=== PATIENT | male | born 1975 | race African-American/Black ===

== ENCOUNTER 2020-02-29 20:45 | Emergency (ER) | payer MEDICAID ==
[~2020-02-29] VITALS: Ht 177.8 cm; Wt 82.0 kg
[2020-02-29] MEDS ORDERED: SODIUM CHLORIDE 0.9% 1,000 ML IV ONE (21:10)
[2020-02-29] MEDS ORDERED: ONDANSETRON HCL 4MG/2ML INJ IV STA (21:10)
[2020-02-29] MEDS ORDERED: LORAZEPAM 2MG/ML CPJ IV ONE (21:15)
[2020-02-29] MEDS ORDERED: LEVETIRACETAM 500MG PREMIX 100 ML IV ONE (21:15)
[2020-02-29 21:41] LABS: BASOPHILS % 0.4 % (0.0-2.0); EOSINOPHILS % 0.4 % (0.0-5.0); HEMATOCRIT. 35.5 % (42.0-52.0); HEMOGLOBIN. 12.3 g/dL (14.0-18.0); MEAN CORPUSCULAR HEMOGLOBIN 29.4 pg (28.0-32.0); MEAN PLATELET VOLUME 8.5 fl (7.4-10.4); MONOCYTES % 5.1 % (2.0-8.0); NEUTROPHILS % 50.1 % (40.0-76.0); PLATELET 300 x1000/uL (130-400); RED BLOOD CELL COUNT 4.18 mill/uL (4.7-6.1); RED CELL DISTRIBUTION WIDTH 14.4 % (11.6-14.6)
[2020-02-29 21:46] LABS: CHLORIDE 107 mEq/L (98-107)
[2020-03-01 00:09] VITALS: BP 111/65
== END 2020-03-01 00:11 | disposition home or self-care (01) ==
LOC: ER 20:45
DX: G40.909 Epilepsy, unspecified, not intractable, without status epilepticus (principal); I10 Essential (primary) hypertension; Z91.14 Patient's other noncompliance with medication regimen
CPT/HCPCS: 36415; 80053; 85025; 96365; 96375; 99284; J1953; J2060; J2405; J7030

== ENCOUNTER 2020-04-29 21:15 | Emergency (ER) | payer MEDICAID ==
[~2020-04-29] VITALS: Ht 180.3 cm; Wt 87.0 kg
[2020-04-29] MEDS ORDERED: SODIUM CHLORIDE 0.9% 1,000 ML IV ONE (21:57)
[2020-04-29] MEDS ORDERED: LEVETIRACETAM 1000MG/100ML 100 ML IV ONE (22:00)
[2020-04-29 23:45] VITALS: BP 97/74
== END 2020-04-30 00:03 | disposition left against medical advice (07) ==
LOC: ER 21:15
DX: R56.9 Unspecified convulsions (principal); R00.0 Tachycardia, unspecified; I10 Essential (primary) hypertension
CPT/HCPCS: 93005; 99283; J7030

== ENCOUNTER 2020-06-12 16:05 | Inpatient (IN) | payer MEDICAID ==
[~2020-06-12] VITALS: Ht 175.3 cm; Wt 78.9 kg
[2020-06-12] MEDS ORDERED: SODIUM CHLORIDE 0.9% 1,000 ML IV ONE ×2 (16:21→16:45)
[2020-06-12] MEDS ORDERED: LORAZEPAM 2MG/ML CPJ IV ONE ×2 (16:30→16:45)
[2020-06-12 16:49] LABS: BASOPHILS % 0.8 % (0.0-2.0); EOSINOPHILS % 1.7 % (0.0-5.0); HEMATOCRIT. 33.9 % (42.0-52.0); HEMOGLOBIN. 11.1 g/dL (14.0-18.0); LYMPHOCYTES % 68.9 % (20.0-50.0); MEAN CORPUSCULAR HEMOGLOBIN 28.4 pg (28.0-32.0); MEAN PLATELET VOLUME 9.2 fl (7.4-10.4); MONOCYTES % 3.2 % (2.0-8.0); NEUTROPHILS % 25.4 % (40.0-76.0); PLATELET 295 x1000/uL (130-400); RED BLOOD CELL COUNT 3.89 mill/uL (4.7-6.1); RED CELL DISTRIBUTION WIDTH 15.1 % (11.6-14.6)
[2020-06-12 16:54] LABS: CHLORIDE 105 mEq/L (98-107)
[2020-06-12 16:57] LABS: PROTHROMBIN TIME 10.3 sec (9.6-11.0)
[2020-06-12 16:58] LABS: ETHANOL BLOOD < 10 mg/dL
[2020-06-12 17:15] LABS: CREATINE KINASE 1350 IU/L (39-308)
[2020-06-12 18:49] LABS: CLARITY URINE CLOUDY (CLEAR); COLOR URINE YELLOW (YELLOW); KETONES URINE NEGATIVE (NEGATIVE); LEUKOCYTE ESTERASE URINE 1+ (NEGATIVE); NITRITE URINE NEGATIVE (NEGATIVE); OCCULT BLOOD URINE 3+ (NEGATIVE); PROTEIN URINE 2+ (NEGATIVE); SPECIFIC GRAVITY URINE 1.019 (1.005-1.030); UROBILINOGEN URINE 0.2 E.U./dL (0.2-1.0)
[2020-06-12 18:58] LABS: *AMPHETAMINES SCREEN URINE PRESUMTIVE POSITIVE (NEGATIVE); *BARBITURATES SCREEN URINE NEGATIVE (NEGATIVE); *BENZODIAZEPINES SCREEN URINE PRESUMTIVE POSITIVE (NEGATIVE); *COCAINE SCREEN URINE NEGATIVE (NEGATIVE)
[2020-06-12 18:59] LABS: CANNABINOID URINE SCREEN PRESUMTIVE POSITIVE (NEGATIVE); METHADONE URINE SCREEN NEGATIVE (NEGATIVE); OPIATES URINE SCREEN NEGATIVE (NEGATIVE); PHENCYCLIDINE URINE SCREEN NEGATIVE (NEGATIVE)
[2020-06-12] MEDS ORDERED: AZITHROMYCIN 500 MG in DEXT 5% WATER 250 ML IV SCH (19:45)
[2020-06-12] MEDS ORDERED: LACTULOSE 20G/30ML UDC PO ONE (19:45)
[2020-06-12] MEDS ORDERED: CEFTRIAXONE 1 G PREMIX 50 ML IV ONE (19:45)
[2020-06-12] MEDS ORDERED: DOCUSATE SODIUM 100MG CAPSULE PO PRN (21:45)
[2020-06-12] MEDS ORDERED: CLONIDINE 0.1MG TABLET PO PRN (21:45)
[2020-06-12] MEDS ORDERED: IPRATROPIUM/ALBUTEROL 0.5-3(2.5)MG/3ML NEB NEB PRN (21:45)
[2020-06-12] MEDS ORDERED: GUAIFENESIN 200MG/10ML SUGAR FREE UDC PO PRN (21:45)
[2020-06-12] MEDS ORDERED: ACETAMINOPHEN 325MG TABLET PO PRN (21:45)
[2020-06-12] MEDS ORDERED: LORAZEPAM 2MG/ML CPJ IV PRN (21:45)
[2020-06-12] MEDS ORDERED: ENOXAPARIN 40MG/0.4ML SYR SUBCUT SCH (21:45)
[2020-06-12] MEDS ORDERED: DIPHENHYDRAMINE 50MG/ML VIAL IV PRN (21:45)
[2020-06-12] MEDS ORDERED: ONDANSETRON HCL 4MG/2ML INJ IV PRN (21:45)
[2020-06-12] MEDS ORDERED: MORPHINE SULFATE 2 MG/ML CPJ (NOT FOR IM USE) IV PRN (21:45)
[2020-06-12] MEDS ORDERED: HYDROCODONE/ACETAMINOPHEN 5/325MG TABLET PO PRN (21:45)
[2020-06-12] MEDS ORDERED: MAGNESIUM/ALUMINUM HYDROXIDE/SIMETHICONE 30ML UDC PO PRN (21:45)
[2020-06-12] MEDS ORDERED: NA PHOS,M-B/NA PHOS,DI-BA ENEMA 118ML PR PRN (21:45)
[2020-06-12 22:20] VITALS: BP 106/79
[2020-06-12 22:25] VITALS: BP 106/79
[2020-06-12] MEDS: SODIUM CHLORIDE 0.45% 1,000 ML IV SCH (22:56)
[2020-06-12] MEDS ORDERED: GABA-531 PO (23:13)
[2020-06-12] MEDS ORDERED: LEVE750T10 PO (23:13)
[2020-06-13] VITALS: BP 113/59
[2020-06-13 04:00] VITALS: BP 121/76
[2020-06-13 08:00] VITALS: BP 114/80
[2020-06-13 08:03] LABS: BASOPHILS % 0.4 % (0.0-2.0); EOSINOPHILS % 1.5 % (0.0-5.0); HEMATOCRIT. 31.5 % (42.0-52.0); HEMOGLOBIN. 10.5 g/dL (14.0-18.0); LYMPHOCYTES % 36.4 % (20.0-50.0); MEAN CORPUSCULAR HEMOGLOBIN 28.4 pg (28.0-32.0); MEAN CORPUSCULAR VOLUME 85.2 fL (80.0-94.0); MONOCYTES % 6.4 % (2.0-8.0); NEUTROPHILS % 55.3 % (40.0-76.0); PLATELET 247 x1000/uL (130-400); RED CELL DISTRIBUTION WIDTH 14.9 % (11.6-14.6)
[2020-06-13 08:10] LABS: CHLORIDE 109 mEq/L (98-107)
[2020-06-13 08:17] LABS: LDL CHOLESTEROL 66 mg/dL (5-100)
[2020-06-13 08:18] LABS: HDL CHOLESTEROL 53 mg/dL (40-59); T4 FREE 0.97 ng/dL (0.76-1.46)
[2020-06-13] MEDS ORDERED: ASPIRIN 81MG EC TABLET PO SCH (09:00)
[2020-06-13] MEDS: SODIUM CHLORIDE 0.45% 1,000 ML IV SCH (09:15)
[2020-06-13 11:45] VITALS: BP 141/79
== END 2020-06-13 12:30 | disposition home or self-care (01) | DRG 812 ==
LOC: ER 16:05 → 5WST 19:16 → ENRESERV 20:01
PROVIDERS: ADMIT Internal Medicine; ATTEND Internal Medicine
DX: T43.621A Poisoning by amphetamines, accidental (unintentional), initial encounter (principal); G92 Toxic encephalopathy; E86.0 Dehydration; N17.9 Acute kidney failure, unspecified; F15.90 Other stimulant use, unspecified, uncomplicated; F20.9 Schizophrenia, unspecified; I10 Essential (primary) hypertension; Y92.89 Other specified places as the place of occurrence of the external cause; E87.2 Acidosis
CPT/HCPCS: 36415; 71045; 80053; 80061; 80305; 80307; 80320; 80329; 81003; 82140; 82550; 83605; 84439; 84443; 84484; 85025; 86850; 86900; 93005; 96365; 99291; J0456; J0696; J1650; J2060; J7030; J7060; G0480

== ENCOUNTER 2020-07-02 03:44 | Emergency (ER) | payer MEDICAID ==
[~2020-07-02] VITALS: Ht 175.3 cm; Wt 81.0 kg
[~2020-07-02 03:44] MED LIST: GABA-531 PO; LEVE750T10 PO
[2020-07-02] MEDS ORDERED: TETANUS, DIPHTHERIA, PERTUSSIS VAC/PF 0.5ML (>7YR OLD) IM ONE (04:00)
[2020-07-02] MEDS ORDERED: SODIUM CHLORIDE 0.9% 1,000 ML IV ONE (04:00)
[2020-07-02] MEDS ORDERED: LEVETIRACETAM 1000MG/100ML 100 ML IV ONE (04:15)
[2020-07-02 04:30] LABS: BASOPHILS % 0.3 % (0.0-2.0); EOSINOPHILS % 0.6 % (0.0-5.0); HEMATOCRIT. 33.3 % (42.0-52.0); HEMOGLOBIN. 11.2 g/dL (14.0-18.0); MEAN CORPUSCULAR HEMOGLOBIN 28.9 pg (28.0-32.0); MEAN CORPUSCULAR VOLUME 85.9 fL (80.0-94.0); MEAN PLATELET VOLUME 8.9 fl (7.4-10.4); MONOCYTES % 5.9 % (2.0-8.0); NEUTROPHILS % 64.2 % (40.0-76.0); PLATELET 244 x1000/uL (130-400); RED BLOOD CELL COUNT 3.87 mill/uL (4.7-6.1); RED CELL DISTRIBUTION WIDTH 14.8 % (11.6-14.6)
[2020-07-02 04:32] LABS: CHLORIDE 109 mEq/L (98-107)
[2020-07-02 04:39] LABS: ETHANOL BLOOD < 10 mg/dL
[2020-07-02 04:43] LABS: PROTHROMBIN TIME 10.4 sec (9.6-11.0)
[2020-07-02] MEDS ORDERED: IOHEXOL-300 100 ML BOTTLE ONE ×2 (05:24→05:57)
[2020-07-02 05:30] VITALS: BP 128/81
[2020-07-02 07:50] LABS: CLARITY URINE CLEAR (CLEAR); COLOR URINE YELLOW (YELLOW); KETONES URINE 1+ (NEGATIVE); LEUKOCYTE ESTERASE URINE NEGATIVE (NEGATIVE); NITRITE URINE NEGATIVE (NEGATIVE); OCCULT BLOOD URINE 1+ (NEGATIVE); PH URINE 5.5 (4.5-8.0); PROTEIN URINE 1+ (NEGATIVE); SPECIFIC GRAVITY URINE 1.059 (1.005-1.030); UROBILINOGEN URINE 0.2 E.U./dL (0.2-1.0)
[2020-07-02 08:03] LABS: *AMPHETAMINES SCREEN URINE PRESUMTIVE POSITIVE (NEGATIVE); *BARBITURATES SCREEN URINE NEGATIVE (NEGATIVE); *BENZODIAZEPINES SCREEN URINE NEGATIVE (NEGATIVE)
[2020-07-02 08:04] LABS: *COCAINE SCREEN URINE NEGATIVE (NEGATIVE); METHADONE URINE SCREEN NEGATIVE (NEGATIVE); OPIATES URINE SCREEN NEGATIVE (NEGATIVE); PHENCYCLIDINE URINE SCREEN NEGATIVE (NEGATIVE)
[2020-07-02 08:05] LABS: CANNABINOID URINE SCREEN PRESUMTIVE POSITIVE (NEGATIVE)
== END 2020-07-02 06:09 | disposition short-term general hospital (02) ==
LOC: ER 03:44
DX: S12.600A Unspecified displaced fracture of seventh cervical vertebra, initial encounter for closed fracture (principal); I60.9 Nontraumatic subarachnoid hemorrhage, unspecified; J93.9 Pneumothorax, unspecified; Z79.899 Other long term (current) drug therapy; W13.4XXA Fall from, out of or through window, initial encounter; Y93.89 Activity, other specified; Y92.89 Other specified places as the place of occurrence of the external cause; Y99.8 Other external cause status
CPT/HCPCS: 36415; 70450; 70486; 71260; 72125; 73090; 74177; 80053; 80185; 80305; 80320; 81003; 83690; 84484; 85025; 85610; 86850; 86900; 86901; 90471; 90715; 93005; 96361; 96365; 99285; J1953; J7030; Q9967; G0480